=== PATIENT | female | born 2000 | race Caucasian/White ===

== ENCOUNTER → 2021-10-31 10:12 | Outpatient (CLI) | payer OTHER, SELFPAY ==
[2021-10-31 12:29] LABS: CRP 4.98 mg/L (0.0-3.0)
[2021-11-01 16:09] LABS: Endomysial Antibody IgA Negative (Negative)
[2021-11-02 09:17] LABS: Immunoglobulin A 166 mg/dL (87-352); t-Transglutaminase IgA <2 U/mL (0-3)
== END ==
PROVIDERS: PCP Pediatrics; Referring Provider Internal Medicine Gastroenterology; Visit Provider Internal Medicine Gastroenterology
DX: R19.7 Diarrhea, unspecified (principal)
CPT/HCPCS: 36415; 82784; 83516; 86140; 86255